=== PATIENT | female | born 1960 | race Caucasian/White ===

== ENCOUNTER 2019-06-07 08:50 | Emergency (ER) | payer OTHER ==
[2019-06-07 08:55] VITALS: TEMP 97.7
--- NOTE | 2019-06-07 09:30 | PDOC ---
History of Present Illness - General Chief Complaint: Lightheaded Stated Complaint: DIZZINESS Time Seen by Provider: 06/07/19 09:03 History Source: Patient Exam Limitations: No Limitations Past History - Past Medical History Allergies/Adverse Reactions: Allergies Allergy/AdvReac Type Severity Reaction Status Date / Time No Known Allergies Allergy Verified 06/07/19 08:55 Home Medications: Ambulatory Orders Lorazepam [Ativan] 0.375 mg PO HS 06/07/19 COPD: No CHF: No Psychiatric Problems: Yes (anxiety) - Suicide/Smoking/Psychosocial Hx Smoking History: Never smoked Information on smoking cessation initiated: No Hx Alcohol Use: No Drug/Substance Use Hx: No *Physical Exam - Vital Signs Last Vital Signs Temp Pulse Resp BP Pulse Ox 97.7 F 82 19 137/76 99 06/07/19 08:53 06/07/19 08:53 06/07/19 08:53 06/07/19 08:53 06/07/19 08:53 - Physical Exam General Appearance: Yes: Other (slightly tearful on exam). No: Apparent Distress Respiratory/Chest: positive: Lungs Clear, Normal Breath Sounds. negative: Respiratory Distress Cardiovascular: positive: Regular Rhythm, Regular Rate, S1, S2. negative: Murmur Gastrointestinal/Abdominal: positive: Normal Bowel Sounds, Soft. negative: Tender, Distended, Guarding, Rebound Neurologic: positive: stunner II-XII NML intact, Fully Oriented, Alert, Normal Mood/ Affect, Motor Strength 5/5, Other (normal gait) ED Treatment Course - LABORATORY CBC & Chemistry Diagram: 06/07/19 09:30 06/07/19 09:30 Medical Decision Making - Medical Decision Making 58 y/o F hx of anxiety (on ativan) presents with being unable to sleep x 3 days as having lightheadedness, nausea and palpitations. Also have been having increased anxiety/nervousness for some time, but states symptoms do not feel like her anxiety. Dizziness is worse with getting up. Denies fever, sob, cp, abd pain, vomiting, diarrhea, weakness of extremities, urinary complaints, vertigo, LOC. Consider ACS, arryhthmia, electrolyte abnormalities Plan: Labs, EKG, orthostats, reassess 06/07/19 09:27 Patient found to be orthostatic positive: Supine 139/78, HR 74 Sitting up 131/82, HR 78 Standing 116/80, HR 103 Will give 1L NS fluids 06/07/19 09:44 Labs unremarkable EKG: NSR at 73 bpm, no ST-T changes, few inverted P waves noted, no other ectopy D/W Dr. Dodd - would like repeat trop 06/07/19 11:20 Repeat trop neg Repeat EKG: NSR at 69 bpm, no ST-T changes, again few inverted P waves noted Patient given copy of EKG Sxs could be related to dehydration/anxiety stable for dc 06/07/19 12:22 *DC/Admit/Observation/Transfer Diagnosis at time of Disposition: Lightheaded - Discharge Dispostion Disposition: HOME Condition at time of disposition: Stable Decision to Admit order: No - Referrals - Patient Instructions Printed Discharge Instructions: DI for Dizziness-Nonvertigo Additional Instructions: Thank you for choosing [facility]. It was a pleasure taking care of you. Your labs were unremarkable Please follow-up with your regular doctor and psychiatrist for further evaluation Return to the Emergency Department if your symptoms worsen or persist, you have fever, shortness of breath, chest pain, severe abdominal pain, vomiting, weakness of extremities (arms and/or legs), changes in vision or walking or other concerning symptoms. - Post Discharge Activity
[2019-06-07] MEDS ORDERED: SODIUM CHLORIDE 1,000 ML IV STA (09:37)
[2019-06-07 09:46] LABS: BASO % 0.6 % (0-2.0); EOS % 0.8 % (0-4.5); HEMATOCRIT 45.4 % (32.4-45.2); HEMOGLOBIN 15.5 GM/dL (10.7-15.3); LYMPH % 31.6 % (8-40); MCH 29.7 pg (25.7-33.7); MCHC 34.1 g/dl (32.0-36.0); MEAN CELL VOLUME 87.1 fl (80-96); MEAN PLT VOLUME 9.4 fl (7.5-11.1); MONO % 8.1 % (3.8-10.2); NEUT % 58.9 % (42.8-82.8); PLATELET COUNT 209 K/MM3 (134-434); RBC 5.21 M/mm3 (3.60-5.2); RDW 12.9 % (11.6-15.6); WHITE BLOOD COUNT 5.5 K/mm3 (4.0-10.0)
[2019-06-07 10:04] VITALS: PULSE 78
[2019-06-07 10:12] LABS: BILIRUBIN,TOTAL 0.8 mg/dL (0.2-1); BLOOD UREA NITROGEN 14.8 mg/dL (7-18); CALCIUM 9.9 mg/dL (8.5-10.1); CREATININE 0.9 mg/dL (0.55-1.3); POTASSIUM 3.6 mmol/L (3.5-5.1); TOT PROT 7.5 g/dl (6.4-8.2)
--- NOTE | 2019-06-07 12:23 | EKG ---
Test Reason : Blood Pressure : / mmHG Vent. Rate : 069 BPM Atrial Rate : 069 BPM P-R Int : 108 ms QRS Dur : 100 ms QT Int : 400 ms P-R-T Axes : -14 067 058 degrees QTc Int : 428 ms SINUS RHYTHM WITH SHORT NE OTHERWISE NORMAL ECG WHEN COMPARED WITH ECG OF 07-JUN-2019 09:34, NO SIGNIFICANT CHANGE WAS FOUND Confirmed by ALEXEI HORTON MD ([id number]) on 06/07/2019 12:23:22 PM Referred By: Confirmed By:ALEXEI HORTON MD
--- NOTE | 2019-06-07 12:24 | EKG ---
Test Reason : Blood Pressure : / mmHG Vent. Rate : 073 BPM Atrial Rate : 073 BPM P-R Int : 096 ms QRS Dur : 092 ms QT Int : 376 ms P-R-T Axes : -20 072 055 degrees QTc Int : 414 ms SINUS RHYTHM WITH SHORT CO SEPTAL INFARCT , AGE UNDETERMINED ABNORMAL ECG NO PREVIOUS ECGS AVAILABLE Confirmed by ALEXEI HORTON MD ([id number]) on 06/07/2019 12:23:45 PM Referred By: Confirmed By:ALEXEI HORTON MD
[2019-06-07 12:49] VITALS: BP 130/67
== END 2019-06-07 12:53 | disposition home or self-care (01) ==
LOC: JER 08:50
PROC: 3E0337Z Introduction of Electrolytic and Water Balance Substance into Peripheral Vein, Percutaneous Approach (ICD-10-PCS; principal; 2019-06-07)
DX: R42 Dizziness and giddiness (principal); F41.9 Anxiety disorder, unspecified
CPT/HCPCS: 36415; 80053; 84484; 85025; 93005; 93010; 99285-25; J7030

== ENCOUNTER 2021-07-31 04:29 | Emergency (ER) | payer OTHER ==
[2021-07-31 04:39] VITALS: BP 138/79; PULSE 67; TEMP 97.8
== END 2021-07-31 04:55 | disposition home or self-care (01) ==
LOC: FER 04:29
DX: R00.2 Palpitations (principal)
CPT/HCPCS: 93005; 99283-25